=== PATIENT | female | born 1960 | race Caucasian/White ===

== ENCOUNTER 2020-02-29 15:55 | Emergency (ER) | payer OTHER ==
[~2020-02-29 15:55] MED LIST: ADMELOG SO100 UNIT/1 SC; ADMELOG SO100 UNIT/1 SQ; ALDACTONE 25MG25 MG PO; ASPIRIN EC81 MG PO; ATORVASTATIN CA20 MG PO; BASAGLAR K100 UNIT/1 SQ; BROVANA15 MCG/2 M NEB; BUDESONIDE0.5 MG/2 M NEB; BUMETANIDE1 MG PO; BUMETANIDE2 MG PO; CARVEDILOL3.125 MG PO; CELEXA 20MG TAB20 MG PO; CELEXA40 MG PO; CHRONULAC20 GM/30 M PO; CITALOPRAM HBR20 MG PO; CLARITIN 10MG T10 MG PO; CLARITIN10 M2 PO; CLOPIDOGREL75 MG PO; COREG12.5 MG PO; DOK100 MG PO; ENTRESTO 24 MG1 EACH PO; ENTRESTO 97 MG1 EACH PO; FLUTICASONE-SA1 EAC3 INH; FUROSEMIDE40 MG PO; GABAPENTIN400 MG PO; GLUCOTROL 10 MG10 MG PO; HUMALOG 10100 UNITS/ SC; HUMALOG100 UNIT/3 SC; IPRAT-ALBUT 0.5-3 ML NEB; K-DUR TAB 10 M10 MEQ PO; K-DUR TAB 20 M20 MEQ PO; K-TAB ER10 MEQ PO; LASIX20 MG PO; LASIX40 MG PO; LEVOFLOXACIN500 MG PO; LEVOTHYROXINE150 MCG PO; LIPITOR TAB 2020 MG PO; LOPRESSOR 25 MG25 MG PO; METOPROLOL SUCC25 MG PO; NEURONTIN600 MG PO; NICOTINE PATCH1 EAC2 TD; OMNICEF 300 MG300 MG PO; OXYCODONE HCL10 MG PO; OXYCODONE HCL5 MG PO; PANTOPRAZOLE SO40 MG PO; PLETAL 100 MG100 MG PO; POTASSIUM CHLO10 MEQ PO; RANEXA500 MG PO; REMERON15 MG PO; VENTOLIN HFA 66.7 GM INH; VITAMIN D325 MC6 PO; XIFAXAN 550 MG550 MG PO; ZANAFLEX4 M1 PO; ZYVOX600 MG PO
[2020-02-29 19:10] LABS: RED BLOOD COUNT 3.71 M/UL (4.00-5.10); WHITE BLOOD COUNT 5.4 K/UL (4.5-11.0)
[2020-02-29 19:34] LABS: BUN/CREATININE RATIO 30 (0-10)
[2020-06-13] MEDS ORDERED: DURAGESIC1 EACH TD (17:18)
== END 2020-02-29 21:20 | disposition home or self-care (01) ==
LOC: ER1 15:55
PROVIDERS: Emergency Medicine
DX: K72.90 Hepatic failure, unspecified without coma (principal); B19.20 Unspecified viral hepatitis C without hepatic coma; I50.9 Heart failure, unspecified; Z87.19 Personal history of other diseases of the digestive system
CPT/HCPCS: 71045; 80053; 82550; 82553; 83874; 83880; 84484; 85025; 93005; 99285

== ENCOUNTER 2020-03-15 13:55 | Inpatient (IN) | payer OTHER ==
[~2020-03-15] VITALS: Ht 184.2 cm; Wt 104.8 kg
[2020-03-15 14:34] LABS: HEMOGLOBIN 10.8 gm/dl (12.3-15.3); RED BLOOD COUNT 3.71 M/UL (4.00-5.10); WHITE BLOOD COUNT 5.3 K/UL (4.5-11.0)
[2020-03-17 04:11] LABS: HEMOGLOBIN 9.9 gm/dl (12.3-15.3); RED BLOOD COUNT 3.45 M/UL (4.00-5.10); WHITE BLOOD COUNT 4.1 K/UL (4.5-11.0)
[2020-03-17 12:43] LABS: BODY FLUID SOURCE PERITONEAL; MONONUCLEAR CELLS 83 (75-100); POLYMORPHONUCLEAR % 17 (0-25); RBC (AUTOMATED) 800 (0-100000); WBC (AUTOMATED) 22 (0-500)
[2020-03-17 13:29] LABS: LDH, BODY FLUID 51 U/L; TOTAL PROTEIN, BODY FLUID 3.2 gm/dL
--- NOTE | 2020-03-17 19:16 | NUR ---
PATIENT LYING IN BED NOW ALERT AND VERBAL EATING. MADE THE PATIENT AWARE THAT SHE HAD 5.3 LITERS DRAINED VIA PARACENTESIS TODAY AND SHE STATES THAT SHE REMEMBERS PART OF THAT BUT THAT SHE WAS SO FATIGUED THAT SHE WAS UNSURE. PATIENT IS ORIENTED X3 AT THIS TIME AND IS DOING BETTER.
[2020-03-18 04:33] LABS: HEMOGLOBIN 10.5 gm/dl (12.3-15.3); RED BLOOD COUNT 3.59 M/UL (4.00-5.10); WHITE BLOOD COUNT 4.9 K/UL (4.5-11.0)
[2020-03-19] MEDS ORDERED: LASIX40 MG PO (11:39)
[2020-06-13] MEDS ORDERED: DURAGESIC1 EACH TD (17:18)
== END 2020-03-19 13:23 | disposition home or self-care (01) | DRG 292 ==
LOC: ER1 13:55 → ZEROF 20:26 → PROG CARE 20:26
PROVIDERS: Emergency Medicine; Internal Medicine; ADMIT Internal Medicine
PROC: 0W9G3ZZ Drainage of Peritoneal Cavity, Percutaneous Approach (ICD-10-PCS; principal; 2020-03-17)
DX: I50.23 Acute on chronic systolic (congestive) heart failure (principal); I42.9 Cardiomyopathy, unspecified; N17.9 Acute kidney failure, unspecified; J96.10 Chronic respiratory failure, unspecified whether with hypoxia or hypercapnia; E87.1 Hypo-osmolality and hyponatremia; J44.9 Chronic obstructive pulmonary disease, unspecified; F17.210 Nicotine dependence, cigarettes, uncomplicated; K74.60 Unspecified cirrhosis of liver; R60.1 Generalized edema; F44.4 Conversion disorder with motor symptom or deficit; I25.10 Atherosclerotic heart disease of native coronary artery without angina pectoris; I73.9 Peripheral vascular disease, unspecified; E11.9 Type 2 diabetes mellitus without complications; E11.40 Type 2 diabetes mellitus with diabetic neuropathy, unspecified; E03.9 Hypothyroidism, unspecified; E78.5 Hyperlipidemia, unspecified; K21.9 Gastro-esophageal reflux disease without esophagitis; F41.9 Anxiety disorder, unspecified; S82.302A Unspecified fracture of lower end of left tibia, initial encounter for closed fracture; S82.832A Other fracture of upper and lower end of left fibula, initial encounter for closed fracture; Z99.81 Dependence on supplemental oxygen; Z86.16 Personal history of COVID-19; Z91.19 Patient's noncompliance with other medical treatment and regimen; Z98.890 Other specified postprocedural states
CPT/HCPCS: 36415; 36600; 71045; 73590; 80048; 80053; 81001; 82140; 82150; 82550; 82553; 82570; 82803; 82945; 82962; 83605; 83615; 83690; 83880; 84157; 84300; 84484; 85025; 85610; 87070; 89051; 93005; 94640; 94664; 94760; 96365; 96375; 96376; 99285; C1729; J0696; J1644; J1940; J7040; P9047; U0002

== ENCOUNTER 2020-03-28 19:31 | Emergency (ER) | payer OTHER ==
[2020-03-28 20:16] LABS: HEMOGLOBIN 11.3 gm/dl (12.3-15.3); RED BLOOD COUNT 3.82 M/UL (4.00-5.10); WHITE BLOOD COUNT 8.2 K/UL (4.5-11.0)
[2020-03-28 20:29] LABS: BUN/CREATININE RATIO 40 (0-10)
[2020-03-28] MEDS ORDERED: BACTRIM DS TAB1 EACH PO (22:56)
[2020-06-13] MEDS ORDERED: DURAGESIC1 EACH TD (17:18)
== END 2020-03-28 23:30 | disposition home or self-care (01) ==
LOC: ER1 19:31
PROVIDERS: Physician Assistant
DX: R18.8 Other ascites (principal); E11.9 Type 2 diabetes mellitus without complications; J44.9 Chronic obstructive pulmonary disease, unspecified; F17.200 Nicotine dependence, unspecified, uncomplicated; Z87.81 Personal history of (healed) traumatic fracture; Z98.890 Other specified postprocedural states; Z88.5 Allergy status to narcotic agent
CPT/HCPCS: 36415; 71045; 80053; 82150; 83690; 85025; 85610; 93005; 99284

== ENCOUNTER 2020-04-06 18:50 | Inpatient (IN) | payer OTHER ==
[~2020-04-06] VITALS: Ht 182.9 cm; Wt 100.4 kg
[~2020-04-06 18:50] MED LIST changes: +BACTRIM DS TAB1 EACH PO
[2020-04-06 21:00] LABS: HEMOGLOBIN 12.2 gm/dl (12.3-15.3); RED BLOOD COUNT 4.12 M/UL (4.00-5.10); WHITE BLOOD COUNT 7.7 K/UL (4.5-11.0)
[2020-04-07] MEDS ORDERED: FUROSEMIDE40 MG PO (10:01)
[2020-04-07] MEDS ORDERED: FERROUS SULFAT325 MG PO (10:31)
[2020-04-07] MEDS ORDERED: BUSPIRONE HCL15 MG PO (10:32)
[2020-04-08 02:44] LABS: HEMOGLOBIN 10.3 gm/dl (12.3-15.3); WHITE BLOOD COUNT 7.4 K/UL (4.5-11.0)
[2020-04-08 02:48] LABS: RED BLOOD COUNT 3.59 M/UL (4.00-5.10)
--- NOTE | 2020-04-08 20:50 | NUR ---
PT'S BP REMAINS LOW. NOTIFIED. PT WAS PLACED ON A LEVOPHED DRIP.
[2020-04-09 04:05] LABS: HEMOGLOBIN 11.4 gm/dl (12.3-15.3); RED BLOOD COUNT 3.94 M/UL (4.00-5.10)
[2020-04-09 04:25] LABS: WHITE BLOOD COUNT 10.1 K/UL (4.5-11.0)
[2020-04-09 14:00] LABS: BODY FLUID SOURCE PERITONEAL
[2020-04-09 14:01] LABS: MONONUCLEAR CELLS 27.8 %; POLYMORPHONUCLEAR 72.2 %; RBC (AUTOMATED) 59600 10^6; WBC (AUTOMATED) 6 10^3
[2020-04-10 02:45] LABS: HEMOGLOBIN 10.9 gm/dl (12.3-15.3); RED BLOOD COUNT 3.78 M/UL (4.00-5.10)
[2020-04-10 02:53] LABS: WHITE BLOOD COUNT 6.6 K/UL (4.5-11.0)
[2020-04-11 03:14] LABS: HEMOGLOBIN 10.3 gm/dl (12.3-15.3); RED BLOOD COUNT 3.6 M/UL (4.00-5.10)
[2020-04-11 03:24] LABS: WHITE BLOOD COUNT 8.6 K/UL (4.5-11.0)
[2020-04-12 03:24] LABS: HEMOGLOBIN 11.5 gm/dl (12.3-15.3); WHITE BLOOD COUNT 7.6 K/UL (4.5-11.0)
[2020-04-12 03:33] LABS: RED BLOOD COUNT 4.01 M/UL (4.00-5.10)
--- NOTE | 2020-04-12 16:17 | NUR ---
NOTIFIED PATIENTS DAUGHTER JOSEMANUEL THAT [facility] HAD ACCEPTED HER MOTHER FOR TRANFER. DAUGHTER STATED OK BUT CALLED ME BACK A FEW MINUTES LATER AND SAID SHE HAD TALKED TO THE REST OF THE FAMILY AND THEY DECIDED THEY DON'T WANT PATIENT TRANSFERRED. NOTIFIED OF THIS.
[2020-04-13 02:53] LABS: HEMOGLOBIN 11.4 gm/dl (12.3-15.3); RED BLOOD COUNT 3.95 M/UL (4.00-5.10); WHITE BLOOD COUNT 7.1 K/UL (4.5-11.0)
[2020-04-14 02:12] LABS: HEMOGLOBIN 10.5 gm/dl (12.3-15.3); RED BLOOD COUNT 3.59 M/UL (4.00-5.10); WHITE BLOOD COUNT 5.8 K/UL (4.5-11.0)
[2020-04-16 03:55] LABS: HEMOGLOBIN 10.6 gm/dl (12.3-15.3); RED BLOOD COUNT 3.64 M/UL (4.00-5.10); WHITE BLOOD COUNT 6.3 K/UL (4.5-11.0)
[2020-04-17 03:21] LABS: HEMOGLOBIN 10.9 gm/dl (12.3-15.3); RED BLOOD COUNT 3.79 M/UL (4.00-5.10)
[2020-04-17 03:51] LABS: WHITE BLOOD COUNT 8.2 K/UL (4.5-11.0)
[2020-04-17] MEDS ORDERED: CHRONULAC20 GM/30 M PO (09:36)
[2020-04-17] MEDS ORDERED: LACTULOSE10 GM/151 PR (09:36)
[2020-04-17] MEDS ORDERED: GABAPENTIN300 MG PO (09:36)
[2020-04-17] MEDS ORDERED: HUMALOG 10100 UNITS/ SC (09:36)
[2020-04-17] MEDS ORDERED: OXYCODONE HCL5 MG PO (09:36)
[2020-06-13] MEDS ORDERED: DURAGESIC1 EACH TD (17:18)
== END 2020-04-17 17:51 | DRG 432 ==
LOC: ER1 18:50 → CDU 04-07 00:18 → PROG CARE 04-07 00:18
PROVIDERS: Internal Medicine; Physician Assistant; ADMIT Internal Medicine
PROC: 0W9G3ZZ Drainage of Peritoneal Cavity, Percutaneous Approach (ICD-10-PCS; 2020-04-07)
PROC: 0W9G3ZZ Drainage of Peritoneal Cavity, Percutaneous Approach (ICD-10-PCS; principal; 2020-04-09)
DX: K74.60 Unspecified cirrhosis of liver (principal); I50.23 Acute on chronic systolic (congestive) heart failure; R57.0 Cardiogenic shock; J18.9 Pneumonia, unspecified organism; I13.0 Hypertensive heart and chronic kidney disease with heart failure and stage 1 through stage 4 chronic kidney disease, or unspecified chronic kidney disease; N17.9 Acute kidney failure, unspecified; E87.1 Hypo-osmolality and hyponatremia; R18.8 Other ascites; J96.11 Chronic respiratory failure with hypoxia; N18.9 Chronic kidney disease, unspecified; E11.22 Type 2 diabetes mellitus with diabetic chronic kidney disease; Z20.828 Contact with and (suspected) exposure to other viral communicable diseases; F41.9 Anxiety disorder, unspecified; G89.4 Chronic pain syndrome; K21.9 Gastro-esophageal reflux disease without esophagitis; R53.83 Other fatigue; E78.5 Hyperlipidemia, unspecified; F17.210 Nicotine dependence, cigarettes, uncomplicated; I25.5 Ischemic cardiomyopathy; J44.9 Chronic obstructive pulmonary disease, unspecified; D64.9 Anemia, unspecified; Z66 Do not resuscitate; Z51.5 Encounter for palliative care; K72.90 Hepatic failure, unspecified without coma; E03.9 Hypothyroidism, unspecified; I25.10 Atherosclerotic heart disease of native coronary artery without angina pectoris; E66.9 Obesity, unspecified; B19.20 Unspecified viral hepatitis C without hepatic coma; I73.9 Peripheral vascular disease, unspecified; Z68.30 Body mass index [BMI] 30.0-30.9, adult; Z83.3 Family history of diabetes mellitus; Z91.19 Patient's noncompliance with other medical treatment and regimen; Z88.5 Allergy status to narcotic agent; Z99.81 Dependence on supplemental oxygen; Z82.49 Family history of ischemic heart disease and other diseases of the circulatory system; Z88.0 Allergy status to penicillin; Z95.5 Presence of coronary angioplasty implant and graft; Z86.16 Personal history of COVID-19; Z79.82 Long term (current) use of aspirin; Z79.899 Other long term (current) drug therapy; Z79.4 Long term (current) use of insulin; S82.202G Unspecified fracture of shaft of left tibia, subsequent encounter for closed fracture with delayed healing; S82.402G Unspecified fracture of shaft of left fibula, subsequent encounter for closed fracture with delayed healing; Z79.01 Long term (current) use of anticoagulants; R13.10 Dysphagia, unspecified
CPT/HCPCS: 0240U; 36415; 36600; 51702; 71045; 80048; 80053; 81001; 82140; 82550; 82553; 82803; 82962; 83615; 83874; 83880; 83986; 84484; 85025; 85027; 85610; 85730; 87070; 87205; 89051; 92610; 93005; 93925; 94640; 94760; 96374; 96375; 99285; C1729; C9113; J0692; J1940; J2020; J2405; P9047; U0002

== ENCOUNTER 2020-05-26 13:42 | Inpatient (IN) | payer OTHER ==
[~2020-05-26] VITALS: Ht 167.6 cm; Wt 103.0 kg
[~2020-05-26 13:42] MED LIST changes: +BUSPIRONE HCL15 MG PO; +FERROUS SULFAT325 MG PO; +GABAPENTIN300 MG PO; +LACTULOSE10 GM/151 PR
[2020-05-26 15:11] LABS: HEMOGLOBIN 10.5 gm/dl (12.3-15.3); RED BLOOD COUNT 3.58 M/UL (4.00-5.10); WHITE BLOOD COUNT 8.4 K/UL (4.5-11.0)
[2020-05-27 00:40] LABS: HEMOGLOBIN 9.4 gm/dl (12.3-15.3); RED BLOOD COUNT 3.23 M/UL (4.00-5.10)
[2020-05-27] MEDS ORDERED: NEURONTIN600 MG PO (11:04)
[2020-05-27] MEDS ORDERED: SYNTHROID150 MCG PO (11:06)
[2020-05-27] MEDS ORDERED: PLAVIX 75 MG TA75 MG PO (11:08)
[2020-05-27] MEDS ORDERED: BROVANA15 MCG/2 M INH (11:10)
[2020-05-27] MEDS ORDERED: PROTONIX 40 MG40 M1 PO (11:11)
[2020-05-27] MEDS ORDERED: ADMELOG SO100 UNIT/1 SC (11:13)
[2020-05-27] MEDS ORDERED: BUSPIRONE HCL15 MG PO (11:13)
[2020-05-27] MEDS ORDERED: ENTRESTO 24 MG1 EACH PO (11:14)
[2020-05-27] MEDS ORDERED: VITAMIN D325 MCG PO (11:14)
[2020-05-27] MEDS ORDERED: REMERON15 MG PO (11:15)
[2020-05-27] MEDS ORDERED: LANTUS SOL100 UNIT/1 SC (11:15)
[2020-05-27] MEDS ORDERED: LASIX40 MG PO (11:15)
[2020-05-27] MEDS ORDERED: KLOR-CON 88 MEQ PO (11:16)
[2020-05-27] MEDS ORDERED: ALDACTONE25 MG PO (11:16)
[2020-05-27] MEDS ORDERED: DOCUSATE SODIU100 MG PO (11:17)
[2020-05-27] MEDS ORDERED: OXYCODONE HCL10 MG PO (11:19)
[2020-05-27] MEDS ORDERED: VISTARIL25 MG PO (11:21)
[2020-05-27 11:51] LABS: BODY FLUID SOURCE ASCITES; RBC (AUTOMATED) 100 (0-100000); WBC (AUTOMATED) 136 (0-500)
[2020-05-27 11:52] LABS: MONONUCLEAR CELLS 75.7 (75-100); POLYMORPHONUCLEAR % 24.3 (0-25)
[2020-05-27] MEDS ORDERED: ZANAFLEX4 MG PO (22:30)
[2020-05-28 03:40] LABS: HEMOGLOBIN 9.3 gm/dl (12.3-15.3); RED BLOOD COUNT 3.19 M/UL (4.00-5.10); WHITE BLOOD COUNT 6.2 K/UL (4.5-11.0)
[2020-05-29 02:37] LABS: RED BLOOD COUNT 3.11 M/UL (4.00-5.10); WHITE BLOOD COUNT 5.5 K/UL (4.5-11.0)
[2020-05-30 02:24] LABS: HEMOGLOBIN 9.7 gm/dl (12.3-15.3); RED BLOOD COUNT 3.35 M/UL (4.00-5.10); WHITE BLOOD COUNT 6.2 K/UL (4.5-11.0)
[2020-06-01 03:36] LABS: HEMOGLOBIN 10.6 gm/dl (12.3-15.3); WHITE BLOOD COUNT 6.8 K/UL (4.5-11.0)
[2020-06-01 03:44] LABS: RED BLOOD COUNT 3.72 M/UL (4.00-5.10)
--- NOTE | 2020-06-01 12:50 | NUR ---
STERILE BEDSIDE PARACENTESIS PERFORMED BY DR. GUIDO. 10 LITERS REMOVED AND DISCARDED PER MD ORDER. MD STATED THAT SAMPLE HAD ALREADY BEEN OBTAINED AND NONE WAS NEEDED FROM TODAY'S PROCEDURE. POST PROCEDURE, PATIENT NOTED TO HAVE MODERATE SEROSANGUINEOUS DRAINAGE FROM SURGICAL SITE. ALBUMIN ADMINISTERED PER MD ORDER, PATIENT TOLERATED WELL (100 GM). MANUAL PRESSURE HELD TO SITE FOR SEVERAL MINUTES, ABD PAD APPLIED AND TAPED TO ABDOMEN. PATIENT IN STABLE CONDITION, DENIES PAIN AND DISCOMFORT. BED LOCKED AND LOW. CALL LIGHT WITHIN REACH.
--- NOTE | 2020-06-01 14:40 | NUR ---
RN CALLED TO PATIENT ROOM BY STAFF. STAFF AND PATIENT INFORMED RN THAT PATIENT HAD SPILLED COFFEE ON ABDOMEN AND PATIENT WAS DISTRAUGHT AND STATED THAT IT WAS PAINFUL AND ASKED RN FOR ALOE. RN NOTIFIED DR. LATHAM OF INCIDENT AND SUGGESTED ALOE A TREATMENT. STATED THAT WAS APPROPRIATE AND INSTRUCTED RN TO CALL PHARMACY FOR DOSAGE INSTRUCTION. PHARMACY VERBALIZED THAT ALOE WASN'T AVAILABLE IN OUR FACILITY AND SUGGESTED SILVADENE CREAM. RN CALLED DR. LATHAM AND SUGGESTED SILVADENE. MD ORDERED SILVADENE CREAM. APPLIED. PATIENT'S BED LOCKED AND LOW. CALL LIGHT WITHIN REACH.
[2020-06-02 04:12] LABS: HEMOGLOBIN 9.1 gm/dl (12.3-15.3); WHITE BLOOD COUNT 5.4 K/UL (4.5-11.0)
[2020-06-02 04:13] LABS: RED BLOOD COUNT 3.16 M/UL (4.00-5.10)
[2020-06-03 06:02] LABS: HEMOGLOBIN 9.6 gm/dl (12.3-15.3); RED BLOOD COUNT 3.32 M/UL (4.00-5.10); WHITE BLOOD COUNT 4.7 K/UL (4.5-11.0)
[2020-06-03 06:26] LABS: BUN/CREATININE RATIO 58 (0-10)
[2020-06-04 06:22] LABS: HEMOGLOBIN 10.3 gm/dl (12.3-15.3); RED BLOOD COUNT 3.57 M/UL (4.00-5.10); WHITE BLOOD COUNT 4.3 K/UL (4.5-11.0)
[2020-06-04 06:52] LABS: BUN/CREATININE RATIO 54 (0-10)
[2020-06-05 06:32] LABS: WHITE BLOOD COUNT 3.3 K/UL (4.5-11.0)
[2020-06-05 06:36] LABS: RED BLOOD COUNT 3.18 M/UL (4.00-5.10)
[2020-06-05 07:03] LABS: BUN/CREATININE RATIO 47 (0-10)
[2020-06-06 05:33] LABS: HEMOGLOBIN 9.3 gm/dl (12.3-15.3); RED BLOOD COUNT 3.23 M/UL (4.00-5.10); WHITE BLOOD COUNT 3.8 K/UL (4.5-11.0)
[2020-06-13] MEDS ORDERED: DURAGESIC1 EACH TD (17:18)
== END 2020-06-06 15:11 | disposition home or self-care (01) | DRG 432 ==
LOC: ER1 13:42 → PROG CARE 16:45 → CDU 16:45 → M/S 16:45 → MED SURG 4 16:45 → M/S 19:08 → CCU 05-27 10:15 → PROG CARE 05-27 16:30 → MED SURG 4 05-30 16:49
PROVIDERS: Emergency Medicine; Family Medicine; Internal Medicine; Internal Medicine Cardiovascular Disease; ADMIT Internal Medicine
PROC: BW40ZZZ Ultrasonography of Abdomen (ICD-10-PCS; 2020-05-27)
PROC: 0W9G3ZZ Drainage of Peritoneal Cavity, Percutaneous Approach (ICD-10-PCS; 2020-05-27)
PROC: 0W9G3ZZ Drainage of Peritoneal Cavity, Percutaneous Approach (ICD-10-PCS; principal; 2020-06-01)
PROC: BW40ZZZ Ultrasonography of Abdomen (ICD-10-PCS; 2020-06-01)
DX: K74.60 Unspecified cirrhosis of liver (principal); I50.23 Acute on chronic systolic (congestive) heart failure; J96.21 Acute and chronic respiratory failure with hypoxia; K72.00 Acute and subacute hepatic failure without coma; R18.8 Other ascites; E87.1 Hypo-osmolality and hyponatremia; G93.49 Other encephalopathy; I13.0 Hypertensive heart and chronic kidney disease with heart failure and stage 1 through stage 4 chronic kidney disease, or unspecified chronic kidney disease; Z20.822 Contact with and (suspected) exposure to COVID-19; Z51.5 Encounter for palliative care; B19.20 Unspecified viral hepatitis C without hepatic coma; E11.42 Type 2 diabetes mellitus with diabetic polyneuropathy; G89.4 Chronic pain syndrome; I25.5 Ischemic cardiomyopathy; F41.9 Anxiety disorder, unspecified; K21.9 Gastro-esophageal reflux disease without esophagitis; E78.5 Hyperlipidemia, unspecified; E03.9 Hypothyroidism, unspecified; I25.10 Atherosclerotic heart disease of native coronary artery without angina pectoris; I50.82 Biventricular heart failure; E87.8 Other disorders of electrolyte and fluid balance, not elsewhere classified; F17.210 Nicotine dependence, cigarettes, uncomplicated; L89.322 Pressure ulcer of left buttock, stage 2; J44.9 Chronic obstructive pulmonary disease, unspecified; E87.6 Hypokalemia; E11.649 Type 2 diabetes mellitus with hypoglycemia without coma; E66.9 Obesity, unspecified; N18.30 Chronic kidney disease, stage 3 unspecified; E11.22 Type 2 diabetes mellitus with diabetic chronic kidney disease; D63.1 Anemia in chronic kidney disease; Z95.5 Presence of coronary angioplasty implant and graft; Z99.81 Dependence on supplemental oxygen; Z79.4 Long term (current) use of insulin; Z98.51 Tubal ligation status; Z88.6 Allergy status to analgesic agent; Z82.49 Family history of ischemic heart disease and other diseases of the circulatory system; Z79.82 Long term (current) use of aspirin; Z83.3 Family history of diabetes mellitus; Z68.36 Body mass index [BMI] 36.0-36.9, adult; Z91.14 Patient's other noncompliance with medication regimen
CPT/HCPCS: 36415; 36600; 51702; 71045; 76705; 80048; 80053; 80076; 81001; 82140; 82550; 82553; 82803; 82962; 83605; 83690; 83735; 83874; 83880; 84100; 84439; 84443; 84484; 85025; 85027; 85379; 85610; 85730; 87040; 87070; 87205; 89051; 93005; 93926; 94640; 94664; 94760; 94762; 96374; 99285; A6212; C1729; J1650; J1940; P9047; Q0177; Q9967; U0002

== ENCOUNTER 2020-06-14 13:44 | Inpatient (IN) | payer OTHER ==
[~2020-06-14] VITALS: Ht 167.6 cm; Wt 103.0 kg
[~2020-06-14 13:44] MED LIST changes: +ALDACTONE25 MG PO; +BROVANA15 MCG/2 M INH; +DOCUSATE SODIU100 MG PO; +DURAGESIC1 EACH TD; +KLOR-CON 88 MEQ PO; +LANTUS SOL100 UNIT/1 SC; +PLAVIX 75 MG TA75 MG PO; +PROTONIX 40 MG40 M1 PO; +SYNTHROID150 MCG PO; +VISTARIL25 MG PO; +VITAMIN D325 MCG PO; +ZANAFLEX4 MG PO
[2020-06-14 14:42] LABS: HEMOGLOBIN 10.9 gm/dl (12.3-15.3); RED BLOOD COUNT 3.74 M/UL (4.00-5.10); WHITE BLOOD COUNT 6.8 K/UL (4.5-11.0)
[2020-06-14] MEDS ORDERED: CLARITIN10 MG PO (17:19)
[2020-06-14] MEDS ORDERED: VITAMIN D325 MCG PO (17:20)
[2020-06-15 07:11] LABS: HEMOGLOBIN 10.3 gm/dl (12.3-15.3); RED BLOOD COUNT 3.6 M/UL (4.00-5.10)
[2020-06-15 07:14] LABS: WHITE BLOOD COUNT 8.9 K/UL (4.5-11.0)
[2020-06-15 17:20] LABS: BODY FLUID SOURCE ASCITES; RBC (AUTOMATED) 100 10^6; WBC (AUTOMATED) 123 10^3
[2020-06-15 17:21] LABS: MONONUCLEAR CELLS 84.6 %; POLYMORPHONUCLEAR 15.4 %
[2020-06-16 05:08] LABS: RED BLOOD COUNT 3.87 M/UL (4.00-5.10); WHITE BLOOD COUNT 11.1 K/UL (4.5-11.0)
[2020-06-18 05:15] LABS: HEMOGLOBIN 10.5 gm/dl (12.3-15.3); RED BLOOD COUNT 3.65 M/UL (4.00-5.10)
[2020-06-19] MEDS ORDERED: MIDODRINE HCL10 MG PO (15:10)
== END 2020-06-21 12:56 | disposition home or self-care (01) | DRG 432 ==
LOC: ER1 13:44 → CDU 16:15 → CCU 16:15 → MED SURG 4 06-21 07:41
PROVIDERS: Internal Medicine; Physician Assistant; Physician Assistant Medical; ADMIT Internal Medicine Infectious Disease
PROC: 3E033XZ Introduction of Vasopressor into Peripheral Vein, Percutaneous Approach (ICD-10-PCS; principal; 2020-06-14)
PROC: 0W9G3ZZ Drainage of Peritoneal Cavity, Percutaneous Approach (ICD-10-PCS; 2020-06-15)
PROC: BW40ZZZ Ultrasonography of Abdomen (ICD-10-PCS; 2020-06-15)
PROC: 0W9G3ZZ Drainage of Peritoneal Cavity, Percutaneous Approach (ICD-10-PCS; 2020-06-18)
PROC: BW40ZZZ Ultrasonography of Abdomen (ICD-10-PCS; 2020-06-18)
DX: K74.69 Other cirrhosis of liver (principal); K72.00 Acute and subacute hepatic failure without coma; J96.21 Acute and chronic respiratory failure with hypoxia; I50.23 Acute on chronic systolic (congestive) heart failure; R57.0 Cardiogenic shock; R57.1 Hypovolemic shock; I21.A1 Myocardial infarction type 2; R18.8 Other ascites; M84.462A Pathological fracture, left tibia, initial encounter for fracture; E87.1 Hypo-osmolality and hyponatremia; Z51.5 Encounter for palliative care; Z20.822 Contact with and (suspected) exposure to COVID-19; I95.9 Hypotension, unspecified; I73.9 Peripheral vascular disease, unspecified; I25.5 Ischemic cardiomyopathy; F41.9 Anxiety disorder, unspecified; J44.9 Chronic obstructive pulmonary disease, unspecified; G89.4 Chronic pain syndrome; K21.9 Gastro-esophageal reflux disease without esophagitis; L89.151 Pressure ulcer of sacral region, stage 1; E87.5 Hyperkalemia; B18.2 Chronic viral hepatitis C; E78.5 Hyperlipidemia, unspecified; F17.210 Nicotine dependence, cigarettes, uncomplicated; E03.9 Hypothyroidism, unspecified; I12.9 Hypertensive chronic kidney disease with stage 1 through stage 4 chronic kidney disease, or unspecified chronic kidney disease; I70.8 Atherosclerosis of other arteries; I25.10 Atherosclerotic heart disease of native coronary artery without angina pectoris; Z95.5 Presence of coronary angioplasty implant and graft; Z91.14 Patient's other noncompliance with medication regimen; Z79.82 Long term (current) use of aspirin; Z88.6 Allergy status to analgesic agent; Z98.51 Tubal ligation status; I50.84 End stage heart failure
CPT/HCPCS: 36415; 71045; 80048; 80053; 80202; 81001; 82140; 82550; 82553; 82962; 83605; 83735; 83874; 83880; 84484; 85025; 85027; 85610; 85730; 87070; 87077; 87086; 87186; 87205; 89051; 93005; 94640; 94760; 96365; 96375; 99285; A6212; C1729; J0696; J1250; J1644; J1650; J1940; J2185; J3370; J7040; J7070; P9047; U0002

== ENCOUNTER 2020-06-27 21:13 | Emergency (ER) | payer OTHER ==
[~2020-06-27 21:13] MED LIST changes: +CLARITIN10 MG PO; +MIDODRINE HCL10 MG PO
== END 2020-06-27 21:23 | disposition expired ==
LOC: ER1 21:13
DX: I46.9 Cardiac arrest, cause unspecified (principal)
CPT/HCPCS: 82962; 92950; 94760; 99285